=== PATIENT | female | born 1995 | race Caucasian/White ===

== ENCOUNTER 2017-04-08 17:21 | Emergency (ER) | payer OTHER ==
[2017-04-08 17:30] VITALS: BP 127/78; PULSE 90; RESP 20; TEMP 98.6
--- NOTE | 2017-04-08 17:42 | ED ---
Lower Extremity Injury HPI - General Chief Complaint: Extremity Injury, Lower Stated Complaint: LEFT FOOT PAIN Time Seen by Provider: 04/08/17 17:32 Source: patient, RN notes reviewed Mode of arrival: ambulatory Limitations: no limitations - History of Present Illness Initial Comments: 21-year-old female presents emergency Department chief complaint of left foot and ankle pain. Patient states started hurting after she woke up. She states that she worked all day at did not have any injury that she knows about. Patient denies any prior fractures. Patient complains of pain the lateral portion of her ankle lateral portion of her foot. She states her is mild swelling. Patient took ibuprofen earlier today with no relief. Patient denies any paresthesias. Patient offers no other complaints. - Related Data Previous Rx's Medication Instructions Recorded HYDROcodone/APAP 5-325MG [[place] 5] 1 each PO Q6HR PRN #30 tab 10/26/14 Lidocaine 5% Patch [Lidoderm] 1 patch TOPICAL DAILY #7 patch 10/26/14 valACYclovir HCL [Valtrex] 1,000 mg PO Q8HR #21 tab 10/26/14 Ibuprofen [Motrin] 600 mg PO Q8HR PRN #30 tab 04/08/17 Allergies Allergy/AdvReac Type Severity Reaction Status Date / Time No Known Allergies Allergy Verified 04/08/17 17:30 Review of Systems ROS Statement: Those systems with pertinent positive or pertinent negative responses have been documented in the HPI. ROS Other: All systems not noted in ROS Statement are negative. Past Medical History Past Medical History: No Reported History History of Any Multi-Drug Resistant Organisms: None Reported Past Surgical History: No Surgical Hx Reported Past Psychological History: No Psychological Hx Reported Smoking Status: Current every day smoker Past Alcohol Use History: Heavy Past Drug Use History: None Reported General Exam Limitations: no limitations General appearance: alert, in no apparent distress Head exam: Present: atraumatic, normocephalic, normal inspection Neck exam: Present: normal inspection, full ROM. Absent: tenderness, meningismus, lymphadenopathy Respiratory exam: Present: normal lung sounds bilaterally. Absent: respiratory distress, wheezes, rales, rhonchi, stridor Cardiovascular Exam: Present: regular rate, normal rhythm, normal heart sounds. Absent: systolic murmur, diastolic murmur, rubs, gallop, clicks Extremities exam: Present: other (Left ankle there is mild tenderness to lateral malleolus, there is swelling just inferior to the lateral malleolus neurovascular intact there is mild tenderness lateral portion of the foot with no obvious injury no ecchymosis Refill less than 2 seconds) Course Vital Signs 04/08/17 17:27 Temperature 98.6 F Pulse Rate 90 Respiratory 20 Rate Blood Pressure 127/78 O2 Sat by Pulse 99 Oximetry Medical Decision Making - Medical Decision Making 21-year-old female presented emergency department tingling of her left foot ankle pain. Patient's x-rays reviewed no acute fracture. Patient has a left ankle foot sprain. She'll be Igor wrap, ibuprofen she'll follow-up with orthopedics if no improvement. Return parameters were discussed. Disposition Clinical Impression: Left ankle sprain, Sprain of left foot Disposition: HOME SELF-CARE Condition: Stable Instructions: Ankle Sprain (ED) Additional Instructions: Please return to the Emergency Department if symptoms worsen or any other concerns. Prescriptions: Ibuprofen [Motrin] 600 mg PO Q8HR PRN #30 tab PRN Reason: Pain Referrals: None,Stated [Primary Care Provider] - 1-2 days Chase Iglesias MD [STAFF PHYSICIAN] - 1-2 days Time of Disposition: 18:14
--- NOTE | 2017-04-08 18:27 | XR ---
EXAMINATION TYPE: XR ankle complete LT DATE OF EXAM: 04/08/2017 COMPARISON: NONE HISTORY: Pain lateral aspect of foot and ankle TECHNIQUE: Three-view left ankle FINDINGS: No acute fractures are evident. Ankle mortise is intact. Soft tissues are normal. IMPRESSION: 1. Normal three-view left ankle. 2. Follow-up exams can be performed 7-10 days from acute trauma for continued pain.
--- NOTE | 2017-04-08 18:28 | XR ---
EXAMINATION TYPE: XR foot complete LT DATE OF EXAM: 04/08/2017 COMPARISON: NONE HISTORY: Pain lateral left foot TECHNIQUE: Three-view left foot FINDINGS: No acute fractures are evident. Soft tissues are normal. Joint spaces are preserved. IMPRESSION: 1. Normal three-view left foot. 2. Follow-up exams can be performed 7-10 days from acute trauma for continued pain.
== END 2017-04-08 18:18 | disposition home or self-care (01) ==
LOC: EC 17:21
DX: S93.402A Sprain of unspecified ligament of left ankle, initial encounter (principal); S93.602A Unspecified sprain of left foot, initial encounter; F17.200 Nicotine dependence, unspecified, uncomplicated
CPT/HCPCS: 99283